=== PATIENT | female | born 1930 | race Native Hawaiian/Other Pacific Islander ===

== ENCOUNTER 2016-06-16 10:48 | Outpatient (CLI) | payer OTHER ==
[2016-06-16 11:11] LABS: PLATELET COUNT 166 K/uL (152-353)
== END 2016-06-16 21:42 | disposition home or self-care (01) ==
LOC: LABW 10:48
PROVIDERS: Nurse Practitioner
DX: E03.8 Other specified hypothyroidism (principal); E11.9 Type 2 diabetes mellitus without complications; D64.9 Anemia, unspecified
CPT/HCPCS: 36415; 82607; 83036; 84439; 84443; 85027

== ENCOUNTER 2016-09-19 11:13 | Outpatient (CLI) | payer OTHER | END 2016-09-19 19:14 | disposition home or self-care (01) | LOC: RAD 11:13 | DX: M79.672 Pain in left foot (principal) ==

== ENCOUNTER 2017-10-03 13:30 | Outpatient (CLI) | payer OTHER ==
[2017-10-03 14:16] LABS: PLATELET COUNT 201 K/uL (152-353)
[2017-10-03 15:15] LABS: POTASSIUM 4.7 mmol/L (3.6-5.2)
== END 2017-10-03 21:42 | disposition home or self-care (01) ==
LOC: LAB 13:30
PROVIDERS: Nurse Practitioner Family
DX: E11.9 Type 2 diabetes mellitus without complications (principal); K21.9 Gastro-esophageal reflux disease without esophagitis; E03.8 Other specified hypothyroidism; D64.89 Other specified anemias; R53.81 Other malaise
CPT/HCPCS: 80053; 80061; 83036; 84436; 84443; 85027

== ENCOUNTER 2018-02-06 18:19 | Inpatient (IN) | payer OTHER ==
[~2018-02-06] VITALS: Ht 167.6 cm; Wt 94.0 kg
[2018-02-06 18:13] VITALS: BP 181/53; TEMP 96.8
[2018-02-06 18:41] LABS: PLATELET COUNT 201 K/uL (152-353)
[2018-02-06 18:51] LABS: POTASSIUM 3.4 mmol/L (3.6-5.2)
[2018-02-07] VITALS (7 sets, daily range): BP systolic 139–152; BP diastolic 31–59; TEMP 97.6–100.7; Ht 167.6 cm; Wt 94.0 kg
[2018-02-07 06:03] LABS: PLATELET COUNT 116 K/uL (152-353)
[2018-02-07 06:39] LABS: POTASSIUM 3.8 mmol/L (3.6-5.2)
[2018-02-08] VITALS: BP 140/47; TEMP 98.1
[2018-02-08 04:00] VITALS: BP 151/49; TEMP 98.3
[2018-02-08 05:43] LABS: PLATELET COUNT 120 K/uL (152-353)
[2018-02-08 05:58] LABS: POTASSIUM 3.2 mmol/L (3.6-5.2)
[2018-02-08 08:00] VITALS: BP 143/50; TEMP 99.2
[2018-02-08 12:00] VITALS: BP 165/51; TEMP 98.2
== END 2018-02-08 14:50 | disposition short-term general hospital (02) | DRG 439 ==
LOC: ED 18:19 → MED/SURG 21:35
PROVIDERS: Family Medicine; ADMIT Emergency Medicine
DX: K85.80 Other acute pancreatitis without necrosis or infection (principal); N39.0 Urinary tract infection, site not specified; R11.2 Nausea with vomiting, unspecified; I10 Essential (primary) hypertension; E11.9 Type 2 diabetes mellitus without complications; K82.8 Other specified diseases of gallbladder
CPT/HCPCS: 36415; 80053; 82150; 83605; 83690; 85027; 87040; 87077; 87185; 87186; 87205; 99284; J1885; J2543; J3370

== ENCOUNTER 2021-02-27 11:26 | Inpatient (IN) | payer OTHER ==
[~2021-02-27] VITALS: Ht 165.1 cm; Wt 102.1 kg
[2021-02-27 11:26] VITALS: BP 167/65; TEMP 98.1
[2021-02-27 11:52] LABS: PLATELET COUNT 195 K/uL (152-353)
[2021-02-27 12:00] VITALS: BP 123/66
[2021-02-27 12:05] LABS: PARTIAL THROMBOPLASTIN TIME 18.1 SECONDS (24.5-33.6)
[2021-02-27 12:10] LABS: POTASSIUM 4.4 mmol/L (3.6-5.2); SODIUM 136 mmol/L (136-145)
[2021-02-27 12:45] VITALS: BP 113/69
[2021-02-27 20:00] VITALS: TEMP 98.1
[2021-02-27 22:47] VITALS: BP 94/65; TEMP 98.1; Ht 165.1 cm; Wt 102.1 kg
[2021-02-28] VITALS: TEMP 97.9
[2021-02-28 04:00] VITALS: TEMP 97.8
[2021-02-28 07:09] LABS: PLATELET COUNT 177 K/uL (152-353)
[2021-02-28 07:23] LABS: POTASSIUM 4.9 mmol/L (3.6-5.2)
[2021-02-28 21:09] VITALS: BP 101/71; TEMP 97.9
[2021-03-01 00:19] VITALS: BP 131/72; TEMP 97.8
[2021-03-01 04:00] VITALS: BP 122/93; TEMP 98
[2021-03-01 06:12] LABS: PLATELET COUNT 223 K/uL (152-353)
[2021-03-01 06:36] LABS: POTASSIUM 5.3 mmol/L (3.6-5.2)
[2021-03-01 08:00] VITALS: BP 97/77; TEMP 97.8
[2021-03-01 11:59] VITALS: BP 121/73; TEMP 97.7
[2021-03-01 16:00] VITALS: BP 130/65; TEMP 98
[2021-03-01 20:00] VITALS: BP 127/64; TEMP 98.4
[2021-03-02] VITALS: BP 121/89; TEMP 96.9
[2021-03-02 04:00] VITALS: BP 89/51
[2021-03-02 05:23] LABS: PLATELET COUNT 197 K/uL (152-353)
[2021-03-02 05:52] LABS: POTASSIUM 6.1 mmol/L (3.6-5.2)
[2021-03-02 07:28] LABS: POTASSIUM 6.2 mmol/L (3.6-5.2)
== END 2021-03-02 23:15 | disposition expired | DRG 177 ==
LOC: ED 11:26 → MED/SURG 12:25 → PCU 12:25 → MED/SURG 02-28 14:10 → ICU 03-02 07:06
PROVIDERS: Hospitalist; ADMIT Internal Medicine Endocrinology, Diabetes & Metabolism; ATTEND Internal Medicine Endocrinology, Diabetes & Metabolism
DX: U07.1 COVID-19 (principal); J12.82 Pneumonia due to coronavirus disease 2019; J96.01 Acute respiratory failure with hypoxia; I25.110 Atherosclerotic heart disease of native coronary artery with unstable angina pectoris; I11.0 Hypertensive heart disease with heart failure; I50.9 Heart failure, unspecified; E11.9 Type 2 diabetes mellitus without complications; I48.91 Unspecified atrial fibrillation; E87.5 Hyperkalemia
CPT/HCPCS: 36415; 36600; 51702; 80053; 81000; 82140; 82550; 82805; 83605; 83880; 84484; 85027; 85610; 85730; 87635; 93005; 94760; 96360; 96375; 99285; J0456; J0610; J0696; J1100; J1650; J1815; J1940; J2270; J2405; J3490; J7060; U0003